=== PATIENT | male | born 1970 | race Hispanic/Latino ===

== ENCOUNTER 2023-10-13 17:09 | Emergency (ER) | payer OTHER ==
[~2023-10-13] VITALS: Ht 177.8 cm; Wt 101.2 kg
[2023-10-13 17:16] VITALS: BP 151/100; PULSE 76; RESP 18; O2SAT 98
[2023-10-13] MEDS ORDERED: IBUP-1493 PO (19:38)
[2023-10-13] MEDS ORDERED: CYCL-309 PO (19:38)
[2023-10-13] MEDS ORDERED: IOHEXOL-350 75 ML VIAL IV ONE (20:22)
[2023-10-13] MEDS ORDERED: CYCLOBENZAPRINE HCL 10 MG TABLET PO ONE (22:30)
[2023-10-13] MEDS ORDERED: IBUPROFEN 800 MG TAB PO ONE (22:30)
== END 2023-10-13 22:49 | disposition home or self-care (01) ==
LOC: EDH 17:09
DX: S16.1XXA Strain of muscle, fascia and tendon at neck level, initial encounter (principal); M25.512 Pain in left shoulder; R51.9 Headache, unspecified; M54.6 Pain in thoracic spine; M54.50 Low back pain, unspecified; Z79.1 Long term (current) use of non-steroidal anti-inflammatories (NSAID); V89.2XXA Person injured in unspecified motor-vehicle accident, traffic, initial encounter; Y93.89 Activity, other specified; Y92.89 Other specified places as the place of occurrence of the external cause; Y99.8 Other external cause status
CPT/HCPCS: 99285; 70450; 72100; 73030; 72072; 72125; 71260; Q9967

== ENCOUNTER → 2025-03-28 | Outpatient (CLI) | payer OTHER ==
[~2025-03-28] MED LIST: IBUP-1493 PO
[2025-03-28 15:10] LABS: CREATININE 0.8 mg/dL (0.5-1.3)
== END | disposition home or self-care (01) ==
LOC: LAB 14:30
PROVIDERS: ATTEND Surgery
DX: R10.9 Unspecified abdominal pain (principal)
CPT/HCPCS: 36415; 82565; 84520

== ENCOUNTER 2025-08-12 12:25 | Emergency (ER) | payer OTHER ==
[~2025-08-12] VITALS: Ht 177.8 cm; Wt 105.7 kg
[2025-08-12 13:17] LABS: IMMATURE GRANULOCYTE ABSOLUTE 0.09 K/uL (0-1); NUCLEATED RED BLOOD CELLS 0.0 % (0.0-0.19); PLATELET COUNT (AUTO) 249 K/uL (130-400); RED BLOOD CELL COUNT(AUTO) 6.05 MIL/uL (4.50-6.20); RED CELL DISTRIBUTION WIDTH 14.5 % (11.0-15.5); WHITE BLOOD COUNT (AUTO) 12.6 K/uL (4.8-10.8)
[2025-08-12 13:24] LABS: APPEARANCE,URINE CLOUDY (CLEAR); GLUCOSE, URINE (UA) NEGATIVE (NEGATIVE); LEUKOCYTE ESTERASE ,URINE 500 Leu/uL (NEGATIVE); NITRATE,URINE NEGATIVE (NEGATIVE); OCCULT BLOOD,URINE MODERATE (NEGATIVE)
[2025-08-12 13:27] LABS: CREATININE 1.2 mg/dL (0.5-1.3); GLOMERULAR FILTR. RATE CALC 72.0 mL/min (>90); GLUCOSE,RANDOM 93.0 mg/dL (70-105); SODIUM SERUM 139.0 mmol/L (136-145); UREA NITROGEN, BLOOD 15.0 mg/dL (7-18)
[2025-08-12 13:36] LABS: ADD UA MICROSCOPIC YES
[2025-08-12 13:37] LABS: SQUAMOUS EPITHELIAL CELL,UR RARE /HPF (0-2)
[2025-08-12] MEDS ORDERED: CEPH500T PO (15:12)
--- NOTE | 2025-08-12 15:13 | ERN ---
ED Note History of Present Illness Stated Complaint: CONCENTRATED URINE, UTI Chief Complaint: Urinary Frequency Time Seen by MD: 12:29 Time Seen by Midlevel: 12:33 Dictation: 55-year-old male with no significant past medical history coming in with comp laints of feeling dehydrated and possibly a urinary tract infection. Patient states at the beginning of this month he had similar symptoms and they diagnosed him with UTI. Also was told that he had urinary tract infection that was caused by his dehydration. Patient states he works out in the sun very often. Patient denies having any fever, nausea and vomiting, back pain. Allergies: Coded Allergies: No Known Drug Allergies (Unverified Allergy, Unknown, 10/13/23) Home Meds Active Scripts Ibuprofen (Motrin/Advil) 800 Mg Tab, 800 MG PO TID, #30 TAB Prov:KRISTY HAQ MD 10/13/23 Past Medical History Past Medical History: No Pertinent History Surgical History: None Family History: Negative Review of System Dictation Constitutional: Negative for fever,chills, and weight loss Eyes: Negative for injury, pain,redness, and discharge ENT: Negative for injury,pain or swelling Cardiovascular: Negative for chest pain, palpitations, and edema Respiratory: Negative for shortness of breath, cough, and wheezing, Abdomen/GI: Negative for abdominal pain, nausea, vomiting, diarrhea, and constipation Back: Negative for injury and pain : Negative for injury, bleeding and discharge, states has a very "concentrated urine MS/Extremity: Negative for injury and deformity Skin: Negative for rash, and discoloration Neuro: Negative for headache, weakness, numbness, tingling, and seizure Psych: Negative for suicide ideation, homicidal ideation, and hallucinations Review of Systems: was completed Initial Vital Sign VS Vital Signs Date Time Temp Pulse Resp B/P (MAP) Pulse Ox O2 Delivery O2 Flow Rate FiO2 08/12/25 12:27 98.8 111 18 154/92 99 Physical Exam Dictation General: awake, alert, NAD Head/Face: Normocephalic, atraumatic Eyes: PERRL, EOMI, vision at baseline ENT: oral cavity clear, TMs clear, no signs of infection Neck: Trachea midline, supple, no nuchal rigidity Cardiovascular: RRR, normal S1/S2, No MRGs, no JVD Respiratory: CTAB, no respiratory distress, No rales or wheezes Abdomen: Soft, non-tender, non-distended, normal bowel sounds, no guarding or rebound. No CVA tenderness Skin: Warm, dry, normal turgor, no rash MS/Extremity: Pulses equal, no cyanosis, neurovascular intact, FROM Neuro: COAx4, GCS 15, strength 5/5, CN 2-12 intact, normal cerebellar exam, normal gait, Psych: Normal behavior, mood, and affect normal Results (Laboratory/Radiology) Laboratory/Radiology Laboratory Tests Test 08/12/25 13:11 08/12/25 13:14 White Blood Count 12.6 K/uL (4.8-10.8) H Red Blood Count 6.05 MIL/uL (4.50-6.20) Hemoglobin 18.6 g/dL (14.0-18.0) H Hematocrit 56.0 % (42-54) H Mean Corpuscular Volume 92.6 fL (79-99) Mean Corpuscular Hemoglobin 30.7 pg (27.0-33.0) Mean Corpuscular Hemoglobin Concent 33.2 g/dL (32.0-36.0) Red Cell Distribution Width 14.5 % (11.0-15.5) Platelet Count 249 K/uL (130-400) Mean Platelet Volume 10.4 fL (7.5-10.5) Immature Granulocyte % (Auto) 0.7 % (0-1) Neutrophils (%) (Auto) 80.1 % (40.0-77.0) H Lymphocytes (%) (Auto) 8.3 % (21.0-51.0) L Monocytes (%) (Auto) 9.8 % (3.0-13.0) Eosinophils (%) (Auto) 0.9 % (0.0-8.0) Basophils (%) (Auto) 0.2 % (0.0-5.0) Neutrophils # (Auto) 10.1 K/uL (1.8-7.7) H Lymphocytes # (Auto) 1.0 K/uL (1.0-4.8) Monocytes # (Auto) 1.2 K/uL (0.1-1.0) H Eosinophils # (Auto) 0.11 K/uL (0.00-0.70) Basophils # (Auto) 0.03 K/uL (0.00-0.20) Absolute Immature Granulocyte (auto 0.09 K/uL (0-1) Nucleated Red Blood Cells 0.0 % (0.0-0.19) White Cell Morphology Comment See comments Sodium Level 139 mmol/L (136-145) Potassium Level 4.8 mmol/L (3.5-5.1) Chloride Level 105 mmol/L (101-111) Carbon Dioxide Level 29 mmol/L (21-32) Blood Urea Nitrogen 15 mg/dL (7-18) Creatinine 1.2 mg/dL (0.5-1.3) Glomerular Filtration Rate Calc 72 mL/min (>90) Random Glucose 93 mg/dL (70-105) Total Calcium 8.6 mg/dL (8.5-10.1) Total Creatine Kinase 300 U/L (21-232) H Urine Color YELLOW (YELLOW) Urine Appearance CLOUDY (CLEAR) H Urine pH 6.5 (5.0-8.0) Urine Specific [place] 1.019 (1.001-1.031) Urine Protein 10 mg/dL (NEGATIVE) H Urine Glucose (UA) NEGATIVE mg/dL (NEGATIVE) Urine Ketones 5 mg/dL (NEGATIVE) H Urine Occult Blood MODERATE (NEGATIVE) H Urine Nitrate NEGATIVE (NEGATIVE) Urine Bilirubin NEGATIVE mg/dL (NEGATIVE) Urine Urobilinogen 0.2 mg/dL (0.2-1.0) Urine Leukocyte Esterase 500 Rhona/uL (NEGATIVE) H Urine RBC 26-50 /HPF (0-1) H Urine WBC 51-100 /HPF (0-1) H Urine Squamous Epithelial Cells RARE /HPF (0-2) Urine Bacteria FEW /HPF (None Seen) Labs Reviewed?: Yes ED Course ED Course Orders Procedure Category Date Status Time Cbc With Differential LAB 08/12/25 Complete 13:00 Basic Metabolic Panel LAB 08/12/25 Complete 13:00 Urinalysis Profile LAB 08/12/25 Complete 13:00 Culture Urine VALORIE 08/12/25 In Process 13:36 Creatine Kinase, Total LAB 08/12/25 Complete 13:55 0.9%Nacl 1000ml (Ns PHA 08/12/25 Complete 1000ml) 13:55 Ceftriaxone 1g Vial PHA 08/12/25 Complete (Rocephine 1g Inj) 13:55 Current Medications Medications (Trade) Dose Ordered Sig/David Route PRN Reason Start Time Stop Time Status Last Admin Dose Admin Ceftriaxone Sodium (ROCEphine 1G INJ) 1 gm ONCE STAT IVPB 08/12/25 13:55 08/12/25 13:58 DC Sodium Chloride 1,000 ml @ 2,000 mls/hr Q30M STAT IV 08/12/25 13:55 08/12/25 14:24 DC Vital Signs Date Time Temp Pulse Resp B/P (MAP) Pulse Ox O2 Delivery O2 Flow Rate FiO2 08/12/25 12:27 98.8 111 18 154/92 99 Medical Decision Making MDM MDM: 55-year-old male with no significant past medical history coming in with complaints of feeling dehydrated and possibly a urinary tract infection. Patient states at the beginning of this month he had similar symptoms and they diagnosed him with UTI. Also was told that he had urinary tract infection that was caused by his dehydration. Patient states he works out in the sun very often. Patient denies having any fever, nausea and vomiting, back pain.And has a count of 12.6, hemoglobin is 18 and hematocrit is 56, more likely related to patient's dehydration. No thrombocytopenia. Chemistry unremarkable. No electrolyte abnormality. Kidney function within normal range. CK is 300. Shows evidence a mild hematuria and urinary tract infection. Findings consistent with UTI, hemorrhagic cystitis. 2 L of NS and Rocephin initiated in the ER and patient will be discharged with the antibiotics. Differential diagnosis: Urinary tract infection, rhabdomyolysis, pyelonephritis, dehydration Rationale: Tests considered and ordered secondary to shared decision making include: Previous outside records reviewed: Old ER visits. Risk of complication and/or morbidity or mortality of patient management: None Medications-Per medication reconciliation Need for hospitalization: Patient does not meet criteria for hospitalization. Need for emergency major/minor surgery: No There are no social concerns with this patient. Prescription drug management Prescriptions will include symptomatic care Patient's prior external medical records from other ER visits were reviewed by me as indicated. Prior testing and results from previous visits were reviewed. Prior tests were taken into account with medical decision making and resource utilization, independent historian/historians were used to obtain complete medical history. I independently interpreted the test that were performed, results were reviewed by me and considered findings on radiology if ordered. Medical management and examination interpretation discussions were had by me with other qualified healthcare professionals as indicated for the patient's care. DX & DISP Disposition: Discharge Departure Impression: Primary Impression: Dehydration Additional Impression: Urinary tract infection Condition: Stable Scripts Cephalexin (Cephalexin) 500 Mg Tablet 1 TAB PO TID for 7 Days, #30 TAB 0 Refills Prov: LIVIA MENDIOLA CNP 08/12/25 Additional Instructions: Dehydrated. Avoid any caffeinated beverages. Finish antibiotic. Return to the hospital if you develop any back pain, fever, nausea and vomiting or any decrease in urine output. Referrals: [facility] (PCP) Time of Disposition: 15:11 I have reviewed the case, and I agree with LIVIA MENDIOLA CNP Aug 12, 2025 15:13
[2025-08-12] MEDS: 0.9%NACL 1000ML 1,000 ML IV STA (16:41)
--- NOTE | 2025-08-12 16:46 | NUR ---
Waiting for fluids to finish for d/c, aware
[2025-08-12 17:33] VITALS: BP 127/71; PULSE 88; RESP 18; TEMP 98.8; O2SAT 99
== END 2025-08-12 17:34 | disposition home or self-care (01) ==
LOC: EDH 12:25
DX: E86.0 Dehydration (principal); N39.0 Urinary tract infection, site not specified; Z79.1 Long term (current) use of non-steroidal anti-inflammatories (NSAID)
CPT/HCPCS: 99283; 96374; 82550; 80048; 85025; 87086 ×2; 87186; 81001; 36415; J7030; J0696

== ENCOUNTER 2025-09-10 08:38 | Emergency (ER) | payer OTHER ==
[~2025-09-10] VITALS: Ht 180.3 cm; Wt 106.1 kg
[~2025-09-10 08:38] MED LIST changes: +CEPH500T PO
[2025-09-10] MEDS ORDERED: ISOP30DR11 OT (08:47)
--- NOTE | 2025-09-10 08:47 | ERN ---
General Chief Complaint: Foreignbody Ear Stated Complaint: BUG IN RIGHT EAR Time Seen by MD: 08:40 Source: patient History of Present Illness Initial Comments Patient is a 55-year-old male coming in complaining of foreign body sensation to the right ear. Per patient this has been ongoing for two weeks. He states he feels as if the foreign body in his ear moves. Allergies: Coded Allergies: No Known Drug Allergies (Unverified Allergy, Unknown, 10/13/23) Home Meds Active Scripts Cephalexin (Cephalexin) 500 Mg Tablet, 1 TAB PO TID for 7 Days, #30 TAB 0 Refills Prov:LIVIA MENDIOLA CNP 08/12/25 Ibuprofen (Motrin/Advil) 800 Mg Tab, 800 MG PO TID, #30 TAB Prov:KRISTY HAQ MD 10/13/23 Past Medical History Past Medical History: No Pertinent History Past Surgical History: None Family History Family History: Negative ROS Dictation CONSTITUTIONAL: No chills, no fever, no weakness, no diaphoresis, no malaise. HEAD/FACE: No signs of trauma. EENT: No eye pain, no blurred vision, no tearing, no double vision, ear pain, no ear discharge, no nose pain, no nasal congestion, no throat pain, no throat swelling, no mouth pain. RESPIRATORY: No cough, no orthopnea, no SOB, no stridor, no wheezing. CARDIOVASCULAR: No chest pain, no edema, no palpitations, no syncope. GASTROINTESTINAL/ABDOMINAL: No abdominal pain, no constipation, no diarrhea, no nausea, no vomiting. GENITOURINARY: No abnormal discharge, no dysuria, no frequent urination, no hematuria. No complaints of pain in the genitals. MUSCULOSKELETAL: No back pain, no gout, no joint pain, no joint swelling, no muscle pain, no muscle stiffness, no neck pain. INTEGUMENTARY: No change in color, no change in hair/nails, no dryness, no lesion, no lumps, no rash. NEUROLOGICAL/PSYCH: No anxiety, not depressed, no emotional problem, no headache, no numbness, no pre-existing deficit, no history of seizures, no tremors, no weakness. HEMATOLOGIC/LYMPHATIC: Not anemic, no history of blood clots, no apparent bleeding, no bruising, glands not swollen. All Systems Negative, Except as Noted. Physical Exam Physical Exam Dictation VITAL SIGNS: Reviewed. GENERAL APPEARANCE: Alert, oriented x3, no acute distress, obese. HEAD AND FACE: Non-traumatic. EYES: PERRL, pink conjunctivas, eyelid no trauma, anterior chamber clear. EARS: Pinnas intact and no signs of trauma or erythema. Ear canals cerumen. TMs no erythema. NOSE: No discharge, no bleeding. OROPHARYNX: Mouth normal, teeth no caries, tongue pink. Pharynx clear, no erythema. Tonsils no exudates, no abscesses noted. Mucous membrane moist. NECK: Supple, non-tender, no thyromegaly, no masses, no JVD, no bruits. BREAST: Deferred. CHEST: No tenderness, no crepitus, no paradoxical movement, no retractions. LUNGS: Clear, well-ventilated, symmetric, no rales, no wheezing, no rhonchi, no stridor, good breath sounds bilaterally. HEART: Regular rate, regular rhythm, no murmur, no gallops. VASCULAR: No peripheral edema. ABDOMEN: Soft, positive bowel sounds, nondistended, no guarding, nontender, no rebound, no masses no hepatomegaly, no splenomegaly, no Vilchis's sign, no hernias. RECTAL: Deferred. GENITAL: Deferred. NEUROLOGICAL: Normal speech, gross motor function intact, gross sensory function intact. MUSCULOSKELETAL: Neck nontender, full range of motion, back nontender, full range of motion. EXTREMITIES: Nontender, full range of motion. SKIN: Color pink, dry, no turgor, no rash, no lacerations, no abrasions, no contusions. LYMPHATICS: Deferred. Results Laboratory and Microbiology Labs Reviewed?: Yes MDM MDM: Differential diagnosis: , cerumen impaction, foreign body, Rationale: Tests considered and ordered secondary to shared decision making include: Previous outside records reviewed: Old ER visits. Risk of complication and/or morbidity or mortality of patient management: None Medications-Per medication reconciliation Need for hospitalization: Patient does not meet criteria for hospitalization. Need for emergency major/minor surgery: No Patient is a 55-year-old male coming in complaining of foreign body sensation to the right ear. On physical exam that has cerumen ball in the right external ear canal. Medication will be provided to remove the wax. Patient will be discharged in stable condition DX & DISP Disposition: Discharge Departure Impression: Primary Impression: Cerumen debris on tympanic membrane of right ear Condition: Stable Scripts Isopropyl Alcohol in Glycerin (Debrox Swimmer's Ear Drop) 95 %-5 % Drops 30 ML OT BID for 7 Days, #100 DROP Prov: KRISTAL SPEARS MD 09/10/25 Additional Instructions: FOLLOW-UP WITH PRIMARY CARE PROVIDER IN 1 TO 2 DAYS. TAKE MEDICATIONS DIRECTED HERE IN THE EMERGENCY ROOM. OKAY TO CONTINUE HOME MEDICATIONS UNLESS OTHERWISE DISCUSSED DURING YOUR VISIT IN THE EMERGENCY ROOM TODAY. RETURN TO YOUR NEAREST EMERGENCY ROOM IF SYMPTOMS WORSEN OR IF THERE IS NO IMPROVEMENT. C ALL 911 IF YOU NEED IMMEDIATE ASSISTANCE. TAKE TYLENOL [id number] NEEDED AND IF NO CONTRAINDICATIONS ARE PRESENT. INCREASE ORAL HYDRATION. A WOUND CULTURE OR URINE CULTURE WAS ORDERED HERE IN THE EMERGENCY ROOM DEPARTMENT PLEASE FOLLOW-UP WITH PRIMARY CARE PROVIDER AND ADVISE THEM TO GET REPORTS FROM OUR FACILITY. IF YOU HAD ANY [place] WRAP/SPLINTS THAT WERE APPLIED HERE, PLEASE DO NOT REMOVE THEM UNTIL YOU SEE YOUR PRIMARY CARE OR SPECIALTY. Referrals: Referrals: [facility] (PCP) Time of Disposition: 08:45 KRISTAL SPEARS MD Sep 10, 2025 08:47
[2025-09-10 09:00] VITALS: BP 111/79; PULSE 60; RESP 14; TEMP 98; O2SAT 99
== END 2025-09-10 09:04 | disposition home or self-care (01) ==
LOC: EDH 08:38
DX: H61.21 Impacted cerumen, right ear (principal); Z79.1 Long term (current) use of non-steroidal anti-inflammatories (NSAID)
CPT/HCPCS: 99282